=== PATIENT | male | born 1980 | race Caucasian/White ===

== ENCOUNTER 2017-10-08 21:20 | Emergency (ER) | payer OTHER ==
[2017-10-08 22:00] LABS: #Eosinphils 0.3 thou/uL (0.0-0.7); #Lymphocytes 2.7 thou/uL (1.20-3.40); #Monocytes 0.7 thou/uL (0.11-0.59); #Neutrophils 6.8 thou/uL (1.40-6.50); %Basophils 0.2 % (0.0-1.0); %Eosinophils 3.3 % (0.0-10.0); %Lymphocytes 25.2 % (21.0-51.0); %Monocytes 6.4 % (0.0-10.0); Hematocrit 48.4 % (42.0-52.0); Red Blood Cell (RBC) Count 5.41 mill/uL (4.70-6.10); White Blood Cell (WBC) Count 10.5 thou/uL (4.8-10.8)
[2017-10-08 22:11] LABS: Bilirubin Negative (Negative); Blood, Urine Trace (Negative); Glucose, Urine (Dipstick) Negative (Negative); Ketone, Urine Negative (Negative); Nitrite Negative (Negative); Protein, Urine (Dipstick) Negative (Neg-Trace)
[2017-10-08 22:19] LABS: Bacteria/HPF None Seen HPF (None Seen); Hyaline Casts/LPF 0-3 HYALINE CAST LPF (0-3 Hyaline); Squamous Epithelial None Seen HPF (0-3); WBC/HPF None Seen HPF (0-3)
[2017-10-08 22:23] LABS: ALT (SGPT) 15 U/L (8-55); AST (SGOT) 17 U/L (5-34); Alkaline Phosphatase 60 U/L (40-150); Anion Gap 16 mmol/L (10-20); BUN (Urea Nitrogen) 11 mg/dL (8.9-20.6); Bilirubin, Total 1.9 mg/dL (0.2-1.2); Calc. Creatinine Clearance 0 mL/min (70-130); Calcium 9.3 mg/dL (7.8-10.44); Carbon Dioxide 24 mmol/L (22-29); Chloride 103 mmol/L (98-107); Estimated GFR-MDRD 76; Globulin 2.8 g/dL (2.4-3.5); Lipase 12 U/L (8-78); Magnesium 2.4 mg/dL (1.6-2.6); Protein, Total 7.5 g/dL (6.0-8.3)
[2017-10-08] MEDS ORDERED: Ketorolac Tromethamine 30 MG/ML VIAL ONE (22:47)
--- NOTE | 2017-10-08 22:54 | RAD ---
PORTABLE UPRIGHT FRONTAL CHEST: Date: 10/08/17 HISTORY: Sudden abdominal pain. FINDINGS: Lungs are clear. Heart and mediastinal contour unremarkable. No acute osseous abnormality. IMPRESSION: No acute findings. POS: [facility]
--- NOTE | 2017-10-08 23:56 | ULT ---
RIGHT UPPER QUADRANT ULTRASOUND: Date: 10/08/17 COMPARISON: None. HISTORY: Pain. TECHNIQUE: Multiplanar Novoa scale sonographic imaging of the right upper quadrant obtained. FINDINGS: Imaged pancreatic parenchyma appears grossly unremarkable. The distal body and the tail are obscured by bowel gas. There is a nonspecific hyperechoic lesion within the right lobe of the liver measuring 1.9 x 1.4 cm, which may represent a hemangioma. No gallbladder wall thickening or pericholecystic fluid is seen. No gallbladder wall thickening. The sonographic Villalta's sign is negative. The right kidney measures 9.4 cm in craniocaudal dimension and demonstrates no stone, hydronephrosis, or mass. The CBD measures approximately 3.0 mm, within normal limits. IMPRESSION: 1. Small hyperechoic focus within the right lobe of the liver. This could be better assessed via fol low-up abdominal MRI as clinically indicated. Alternatively, focused ultrasound in 6 months advised t o document stability. 2. No acute findings. No evidence for cholelithiasis, cholecystitis, or biliary dilatation. POS: [facility]
--- NOTE | 2017-10-09 09:26 | CT ---
PRELIMINARY REPORT/[facility]/EMERGENCY AFTER HOURS PROCEDURE: EXAM: CT Abdomen and Pelvis With Intravenous Contrast CLINICAL HISTORY: 37 years old, male; Pain; Abdominal pain; Generalized TECHNIQUE: Axial computed tomography images of the abdomen and pelvis with intravenous contrast. Coronal reformatted images were created and reviewed. CONTRAST: 100 mL of ISOVUE administered intravenously. COMPARISON: No relevant prior studies available. FINDINGS: Lower thorax: There is minimal bibasilar atelectatic change or scarring. ABDOMEN: Liver: Unremarkable. No mass. Gallbladder and bile ducts: Unremarkable. No calcified stones. No ductal dilation. Pancreas: Unremarkable. No mass. No ductal dilation. Spleen: There is mild splenomegaly. Adrenals: Unremarkable. No mass. Kidneys and ureters: Unremarkable. No solid mass. No hydronephrosis. Stomach and bowel: Unremarkable. No obstruction. No mucosal thickening. Appendix: The appendix is unremarkable and seen best on axial image 70 of series 2. PELVIS: Bladder: Unremarkable. No mass. Reproductive: There are prostate gland calcifications. ABDOMEN and PELVIS: Intraperitoneal space: Unremarkable. No free air. No significant fluid collection. Bones/joints: No acute fracture. No dislocation. Soft tissues: Unremarkable. Vasculature: Unremarkable. No abdominal aortic aneurysm. Lymph nodes: Unremarkable. No enlarged lymph nodes. IMPRESSION: No acute findings. Thank you for allowing us to participate in the care of your patient. Dictated and Authenticated by: Lisandro Flores MD 10/09/2017 1:31 AM Central Time ([place] & [place]) FINAL REPORT CT ABDOMEN AND PELVIS WITH IV CONTRAST: DATE: 10/09/17. HISTORY: Left upper quadrant abdominal pain with sudden onset at 1930 hours. The patient states the pain is s tabbing in nature and causes the patient to buckle over. IMPRESSION: 1. No acute findings are seen in the abdomen or pelvis. 2. Small fat-containing umbilical hernia. 3. Findings are in agreement with the preliminary report by [facility]. POS: [facility]
[2017-10-09] MEDS ORDERED: ISOVUE-370 76%-LOCM 1 ML ONE (17:15)
== END 2017-10-09 01:45 | disposition home or self-care (01) ==
LOC: ERS 21:20
DX: R10.13 Epigastric pain (principal); R10.11 Right upper quadrant pain; R10.12 Left upper quadrant pain; F98.8 Other specified behavioral and emotional disorders with onset usually occurring in childhood and adolescence
CPT/HCPCS: 71010; 74177; 76705; 80053; 81003; 81015; 82248; 83690; 83735; 85025; 96361; 96372; 96374; J1885

== ENCOUNTER 2021-02-20 01:23 | Emergency (ER) | payer OTHER, SELFPAY ==
[2021-02-20 01:52] LABS: #Eosinphils 0.2 thou/uL (0.0-0.7); #Lymphocytes 1.1 thou/uL (1.20-3.40); #Monocytes 0.4 thou/uL (0.11-0.59); #Neutrophils 7.3 thou/uL (1.40-6.50); %Basophils 0.1 % (0.0-1.0); %Eosinophils 2.6 % (0.0-10.0); %Lymphocytes 12.4 % (21.0-51.0); %Monocytes 4.9 % (0.0-10.0); Hemoglobin 16.1 g/dL (14.0-18.0); Mean Corpuscular Volume 85.5 fL (78.0-98.0); Mean Platelet Volume 7.1 fL (7.4-10.4); Platelet Count 198 thou/uL (130-400); RBC Distribution Width 12.3 % (11.5-14.5); Red Blood Cell (RBC) Count 5.57 mill/uL (4.70-6.10); White Blood Cell (WBC) Count 9.1 thou/uL (4.8-10.8)
[2021-02-20 02:13] LABS: ALT (SGPT) 21 U/L (8-55); AST (SGOT) 15 U/L (5-34); Albumin 4.8 g/dL (3.5-5.0); Alkaline Phosphatase 60 U/L (40-110); Anion Gap 14 mmol/L (10-20); BUN (Urea Nitrogen) 19 mg/dL (8.9-20.6); Calc. Creatinine Clearance 0 mL/min (70-130); Calcium 9.6 mg/dL (7.8-10.44); Carbon Dioxide 25 mmol/L (22-29); Chloride 104 mmol/L (98-107); Globulin 2.9 g/dL (2.4-3.5); Glucose 101 mg/dL (70-105); Potassium 3.8 mmol/L (3.5-5.1); Protein, Total 7.7 g/dL (6.0-8.3); Sodium 139 mmol/L (136-145)
== END 2021-02-20 03:37 | disposition short-term general hospital (02) ==
LOC: ERS 01:23
DX: B34.9 Viral infection, unspecified (principal)
CPT/HCPCS: 80053; 85025; 93005

== ENCOUNTER 2024-01-06 04:49 | Emergency (ER) | payer BC, SELFPAY ==
[2024-01-06 05:49] LABS: #Eosinphils 0.1 thou/uL (0.0-0.7); #Monocytes 0.6 thou/uL (0.11-0.59); #Neutrophils 4.7 thou/uL (1.40-6.50); %Basophils 0.1 % (0.0-1.0); %Eosinophils 1.7 % (0.0-10.0); %Lymphocytes 22.1 % (21.0-51.0); %Neutrophils 67.7 % (42.0-75.0); Hematocrit 45.7 % (42.0-52.0); Hemoglobin 15.2 g/dL (14.0-18.0); Mean Corpuscular HGB CONC 33.3 g/dL (32.0-36.0); Mean Corpuscular Hemoglobin 28.5 pg (27.0-31.0); Mean Corpuscular Volume 85.7 fl (78.0-98.0); Mean Platelet Volume 9.3 fL (7.4-10.4); Platelet Count 260 10x3/uL (130-400); RBC Distribution Width 12.9 % (11.5-14.5); Red Blood Cell (RBC) Count 5.33 mill/uL (4.70-6.10)
[2024-01-06 06:20] LABS: ALT (SGPT) 29 U/L (8-55); AST (SGOT) 14 U/L (5-34); Albumin 4.4 g/dL (3.5-5.0); Alkaline Phosphatase 55 U/L (40-110); Anion Gap 16 mmol/L (10-20); BUN (Urea Nitrogen) 18 mg/dL (8.9-20.6); Calc. Creatinine Clearance 0 mL/min (70-130); Calcium 9.1 mg/dL (7.8-10.44); Carbon Dioxide 24 mmol/L (22-29); Chloride 105 mmol/L (98-107); Estimated GFR 82; Glucose 106 mg/dL (70-105); Potassium 3.8 mmol/L (3.5-5.1); Protein, Total 7.4 g/dL (6.0-8.3); Sodium 141 mmol/L (136-145)
[2024-01-06] MEDS ORDERED: Ketorolac Tromethamine 30 MG (1 mL) VIAL ONE (06:27)
[2024-01-06] MEDS ORDERED: Dexamethasone 10 MG/ML VIAL ONE (06:27)
[2024-01-06] MEDS ORDERED: Iopamidol-370 76% 500 ML MDV (1 ML CHARGE) ONE (13:21)
== END 2024-01-06 09:02 | disposition home or self-care (01) ==
LOC: ERS 04:49
DX: K11.20 Sialoadenitis, unspecified (principal); R22.0 Localized swelling, mass and lump, head
CPT/HCPCS: 36415; 70491; 80053; 85025; 96374; 96375; J1100; J1885; Q9967